=== PATIENT | male | born 2000 ===

== ENCOUNTER 2022-06-04 10:09 | Outpatient (REF) | payer BC, SELFPAY ==
--- NOTE | 2022-06-04 12:31 | MHC.AU.AEV ---
Adult Audiological Evaluation Date of Visit: 06/04/22 Reason for Appointment: Patient is working towards enlistment in the . During his intake, he did not pass the hearing screening. He was surprised by this finding, as he has never perceived any hearing or communication difficulties in his daily life. Hearing Handicap Inventory Does a hearing problem cause you to feel embarrassed when meeting new people?: No Does a hearing problem cause you to feel frustrated when talking to members of your family?: No Do you have difficulty when someone speaks in a whisper?: No Do you feel handicapped by a hearing problem?: No Does a hearing problem cause you difficulty when visiting friends, relatives, or neighbors?: No Does a hearing problem cause you to attend yarsanism service services less often than you would like?: No Does a hearing problem cause you to have arguments with family members?: No Does a hearing problem cause you difficulty when listening to TV or radio?: No Do you feel that any difficult with your hearing limits or hampers your personal or social life?: No Does a hearing problem cause you difficulty when in a restaurants with relatives or friends?: No HHIE SCORE: 0 Based on HHIE score, patient has: No perceived hearing handicap Ear History: Ear Deformity: None Reported Recent Ear Drainage: None Reported Recent Ear Pain: None Reported Family History of Hearing Loss?: No Recent Ear Infections: None Reported Ear Infections in Childhood: None Reported History of Ear Wax Buildup: None Reported Previous Ear Surgery: None Reported Bothersome Tinnitus/Ringing/Noises in Ears: None Reported Ear used on the phone: Right Ear Blocked/Full Sensation in Ear(s): None Reported 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 Medical History: Medical History: Unremarkable Medical History Otoscopy: Right Ear: Unremarkable Left Ear: Unremarkable Tympanometry: Tympanometry performed due to: To assess integrity of the middle ear system Right Ear: Normal Middle Ear System (Type A) Left Ear: Normal Middle Ear System (Type A) Hearing Evaluation: Transducer(s) Used: Insert Earphones Method: Conventional Audiometry Stimuli Used: Pure Tones Right Ear: Description of Hearing: Normal from 250-3000 Hz, mild sensorineural hearing loss at 1167-5944 Hz, normal at 8000 Hz Left Ear: Description of Hearing: Normal from 250-2000 Hz, mild sensorineural hearing loss at 0337-2774 Hz, normal from 8103-2705 Hz Speech Recognition Threshold (SRT): Method Used: Recorded Lists Stimuli Used: Spondee Words Right Ear: 15 dBHL Left Ear: 15 dBHL Word Discrimination: Method: Recorded Lists Word Lists Used:: W-22 Right Ear: 100% at 55 dBHL Left Ear: 100% at 55 dBHL QuickSIN: Tested binaurally at 55 dBHL: 2 dB SNR loss, which shows normal ability to understand speech in noise Interpretation of Results: Patient's hearing is mostly within normal range, with mild hearing loss at 4037-9642 Hz in the right ear and 2300-8667 Hz in the left ear. His word discrimination ability at a normal conversational volume is 100% in both ears. His ability to understand speech in noise is within normal range. Overall, I do not expect that the patient's day-to-day listening or communication tasks would be impacted by today's findings. Recommendations: Audiological re-evaluation if changes are noted. Diagnosis: H90.3 Bilateral Sensorineural Hearing Loss Signature: Provider: Cait Ly, CCC-A
== END 2022-06-04 10:10 | disposition home or self-care (01) ==
LOC: HO.SH 10:09
PROVIDERS: Visit Provider Pediatrics
DX: Z01.118 Encounter for examination of ears and hearing with other abnormal findings (principal); H90.3 Sensorineural hearing loss, bilateral
CPT/HCPCS: 92557; 92567